=== PATIENT | male | born 1985 | race African-American/Black ===

== ENCOUNTER 2024-06-07 19:16 | Emergency (ER) | payer MEDICAID ==
[~2024-06-07] VITALS: Ht 170.2 cm; Wt 78.0 kg
[2024-06-07 20:45] VITALS: O2SAT 98
[2024-06-07 20:49] VITALS: BP 128/84; PULSE 59; RESP 14; TEMP 36.66960; O2SAT 99
[2024-06-07 21:14] LABS: BASOPHILS % 1.1 % (0.0-2.0); HEMATOCRIT. 46.9 % (42.0-52.0); HEMOGLOBIN. 15.5 g/dL (14.0-18.0); LYMPHOCYTES % 47.2 % (20.0-50.0); MEAN CORPUSCULAR HEMOGLOBIN 26.8 pg (28.0-32.0); MEAN PLATELET VOLUME 9.6 fl (7.4-10.4); MONOCYTES % 8.7 % (2.0-8.0); PLATELET 190 x1000/uL (130-400); RED BLOOD CELL COUNT 5.79 mill/uL (4.7-6.1); RED CELL DISTRIBUTION WIDTH 13.8 % (11.6-14.6); WHITE BLOOD COUNT 6.1 x1000/uL (4.5-11.0)
[2024-06-07 21:18] LABS: CHLORIDE 107 mEq/L (98-107); POTASSIUM 4.6 mEq/L (3.5-5.1); SODIUM 141 mEq/L (136-145)
[2024-06-07 21:19] LABS: CALCIUM 9.9 mg/dL (8.7-10.4); CARBON DIOXIDE 31 mEq/L (21-32)
[2024-06-07 21:24] LABS: CREATININE 0.9 mg/dL (0.6-1.3); GLUCOSE 86 mg/dL (70-105); UREA NITROGEN BLOOD 8 mg/dL (9-23)
[2024-06-07 21:32] LABS: TROPONIN I HIGH SENSITIVITY < 4 ng/L (3.0-53)
[2024-06-07] MEDS ORDERED: IBUP-2029 MT (22:27)
[2024-06-07] MEDS: KETOROLAC 30MG/ML VIAL IM NR (22:50)
== END 2024-06-07 23:17 ==
LOC: ER 20:43
DX: I31.9 Disease of pericardium, unspecified (principal); E78.00 Pure hypercholesterolemia, unspecified; Z98.890 Other specified postprocedural states
CPT/HCPCS: 99284; 71045; 80048; 85025; 85651; 84484; 36415; 93005; 96372; J1885

== ENCOUNTER 2024-07-24 04:39 | Emergency (ER) | payer MEDICAID ==
[~2024-07-24] VITALS: Ht 172.7 cm; Wt 81.0 kg
[~2024-07-24 04:39] MED LIST: IBUP-2029 MT
[2024-07-24 04:55] VITALS: TEMP 98.6; O2SAT 100
[2024-07-24] MEDS: ASPIRIN 325MG EC TABLET PO ONE (05:43)
[2024-07-24 05:44] LABS: BASOPHILS % 0.7 % (0.0-2.0); EOSINOPHILS % 1.9 % (0.0-5.0); HEMATOCRIT. 46.3 % (42.0-52.0); HEMOGLOBIN. 16.1 g/dL (14.0-18.0); LYMPHOCYTES % 45.1 % (20.0-50.0); MEAN CORPUSCULAR HEMOGLOBIN 28.1 pg (28.0-32.0); MEAN CORPUSCULAR HGB CONC 34.7 g/dL (31.0-37.0); MEAN CORPUSCULAR VOLUME 80.8 fL (80.0-94.0); MEAN PLATELET VOLUME 9.5 fl (7.4-10.4); NEUTROPHILS % 39.3 % (40.0-76.0); PLATELET 143 x1000/uL (130-400); RED BLOOD CELL COUNT 5.73 mill/uL (4.7-6.1); RED CELL DISTRIBUTION WIDTH 13.8 % (11.6-14.6); WHITE BLOOD COUNT 5.2 x1000/uL (4.5-11.0)
[2024-07-24 05:48] LABS: CHLORIDE 108 mEq/L (98-107); SODIUM 143 mEq/L (136-145)
[2024-07-24 05:49] LABS: CALCIUM 9.8 mg/dL (8.7-10.4); CARBON DIOXIDE 32 mEq/L (21-32)
[2024-07-24 05:54] LABS: GLUCOSE 100 mg/dL (70-105); UREA NITROGEN BLOOD 13 mg/dL (9-23)
[2024-07-24 05:56] LABS: ALANINE AMINOTRANSFERASE 22 IU/L (10-49); ALBUMIN 4.5 g/dL (3.2-4.8); ASPARTATE AMINOTRANSFERASE 21 IU/L (<34); BILIRUBIN TOTAL 0.7 mg/dL (0.1-1.0); PROTEIN TOTAL 7.4 g/dL (6.0-8.3)
[2024-07-24 05:58] LABS: THYROID STIMULATING HORMONE 3.28 uIU/mL (0.55-4.78)
[2024-07-24 06:13] LABS: TROPONIN I HIGH SENSITIVITY < 4 ng/L (3.0-53)
[2024-07-24] MEDS: IBUPROFEN 600MG TABLET PO ONE (06:29)
[2024-07-24 06:50] VITALS: BP 115/80; PULSE 61; RESP 16; O2SAT 99
[2024-07-24 09:45] LABS: ERYTHROCYTE SEDIMENTATION RATE 2 mm/hr (0-15)
== END 2024-07-24 06:51 | disposition home or self-care (01) ==
LOC: ER 04:39
DX: R07.89 Other chest pain (principal); I31.9 Disease of pericardium, unspecified
CPT/HCPCS: 36415; 71045; 80053; 84443; 84484; 85025; 85651; 93005; 99285